=== PATIENT | male | born 1995 | race Caucasian/White ===

== ENCOUNTER 2019-04-13 23:19 | Emergency (ER) | payer OTHER ==
[~2019-04-13] VITALS: Ht 170.2 cm; Wt 66.0 kg
[2019-04-14] MEDS ORDERED: SODIUM CHLORIDE 0.9% 1,000 ML IV ONE (03:22)
[2019-04-14 03:59] LABS: BASOPHILS % 0.1 % (0.0-2.0); EOSINOPHILS % 2.8 % (0.0-5.0); HEMATOCRIT. 43.6 % (42.0-52.0); HEMOGLOBIN. 15.4 g/dL (14.0-18.0); LYMPHOCYTES % 41.6 % (20.0-50.0); MEAN CORPUSCULAR HEMOGLOBIN 32.2 pg (28.0-32.0); MEAN CORPUSCULAR VOLUME 91.1 fL (80.0-94.0); MEAN PLATELET VOLUME 7.8 fl (7.4-10.4); MONOCYTES % 7.8 % (2.0-8.0); NEUTROPHILS % 47.7 % (40.0-76.0); PLATELET 230 x1000/uL (130-400); RED BLOOD CELL COUNT 4.78 mill/uL (4.7-6.1); RED CELL DISTRIBUTION WIDTH 12.8 % (11.6-14.6)
[2019-04-14 04:04] LABS: CHLORIDE 103 mEq/L (98-107)
[2019-04-14 07:02] VITALS: BP 122/63
== END 2019-04-14 07:23 | disposition home or self-care (01) ==
LOC: ER 23:19
DX: R10.9 Unspecified abdominal pain (principal); K62.5 Hemorrhage of anus and rectum
CPT/HCPCS: 36415; 74176; 80053; 83690; 85025; 86850; 86900; 86901; 99284; J7030